=== PATIENT | female | born 1955 ===

== ENCOUNTER 2019-07-19 11:45 | Inpatient (IN) | payer OTHER ==
[~2019-07-19] VITALS: Ht 14 cm; Wt 84.8 kg
[2019-07-19] MEDS ORDERED: WELLBUTRIN XL150 M1 PO (14:10)
== END 2019-07-23 15:00 | disposition home or self-care (01) | DRG 743 ==
LOC: EDSTATUS 11:45 → ADM 11:45 → O/R 07-22 11:10 → OB/GYN 07-22 11:10 → SURH 07-22 11:45 → OB/GYN 07-23 15:00
PROVIDERS: ADMIT Obstetrics & Gynecology Gynecologic Oncology
PROC: 07BC4ZX Excision of Pelvis Lymphatic, Percutaneous Endoscopic Approach, Diagnostic (ICD-10-PCS; 2019-07-22)
PROC: 0UT74ZZ Resection of Bilateral Fallopian Tubes, Percutaneous Endoscopic Approach (ICD-10-PCS; 2019-07-22)
PROC: 0UT24ZZ Resection of Bilateral Ovaries, Percutaneous Endoscopic Approach (ICD-10-PCS; 2019-07-22)
PROC: 0UT94ZZ Resection of Uterus, Percutaneous Endoscopic Approach (ICD-10-PCS; principal; 2019-07-22 15:15)
DX: N85.02 Endometrial intraepithelial neoplasia [EIN] (principal); R59.0 Localized enlarged lymph nodes; N72 Inflammatory disease of cervix uteri; N94.89 Other specified conditions associated with female genital organs and menstrual cycle